=== PATIENT | male | born 1985 | race Caucasian/White ===

== ENCOUNTER 2019-09-05 11:55 | Inpatient (IN) | payer BC ==
[2019-09-05 13:10] LABS: Bilirubin Negative (Negative); Blood, Urine 1+ (Negative); Clarity Clear (Clear); Glucose, Urine (Dipstick) Greater than 1000 mg/dL (Negative); Leukocyte Negative Leu/uL (Negative); Nitrite Negative (Negative); Protein, Urine (Dipstick) 100 mg/dL (Neg-Trace); RBC/HPF 0-3 HPF (0-3); Squamous Epithelial 0-3 HPF (0-3); Urobilinogen 3 mg/dL (Less than 2); WBC/HPF 0-3 HPF (0-3)
[2019-09-05 13:20] LABS: Bacteria/HPF None Seen HPF (None Seen)
--- NOTE | 2019-09-05 13:39 | RAD ---
XR Chest 1 View Portable HISTORY: Diabetic ketoacidosis COMPARISON: None FINDINGS: The heart size is normal. The lungs are well expanded without focal areas of consolidation, pneumothorax or pleural effusions. IMPRESSION: No radiographic evidence of acute cardiopulmonary process.
[2019-09-05 14:34] LABS: Base Excess-Venous -12.9 mmol/L (-2.0 to 3.0); Bicarbonate (HCO3v) 13.5 mmol/L (22.0-28.0); CO2 Tension (PvCO2) 32.4 mmHg (40.0-50.0); Calcium, Ionized 1.07 mmol/L (See Comments:); Chloride 110 mmol/L (98-107); Hemoglobin - Calc 16.2 g/dL (14.0-18.0); Potassium 3.9 mmol/L (3.5-5.1); Sodium 135 mmol/L (138-145); T. Carbon Dioxide 14.5 mmol/L (22.0-28.0); vO2 Saturation-calc 99.6 % (60.0-85.0)
[2019-09-05 14:46] LABS: #Basophils 0.1 thou/uL (0.0-0.2); #Eosinphils 0.1 thou/uL (0.0-0.7); #Lymphocytes 2.6 thou/uL (1.20-3.40); #Monocytes 0.6 thou/uL (0.11-0.59); #Neutrophils 8.5 thou/uL (1.40-6.50); %Basophils 0.5 % (0.0-1.0); %Eosinophils 0.4 % (0.0-10.0); %Lymphocytes 21.9 % (21.0-51.0); %Monocytes 5.3 % (0.0-10.0); %Neutrophils 71.9 % (42.0-75.0); Hemoglobin 13.8 g/dL (14.0-18.0); Mean Corpuscular HGB CONC 34.3 g/dL (32.0-36.0); Mean Corpuscular Hemoglobin 31.6 pg (27.0-31.0); Platelet Count 231 thou/uL (130-400); RBC Distribution Width 12.3 % (11.5-14.5); Red Blood Cell (RBC) Count 4.38 mill/uL (4.70-6.10); White Blood Cell (WBC) Count 11.8 thou/uL (4.8-10.8)
[2019-09-05 15:03] LABS: ALT (SGPT) 19 U/L (8-55); AST (SGOT) 16 U/L (5-34); Albumin 3.6 g/dL (3.5-5.0); Alkaline Phosphatase 74 U/L (40-110); Anion Gap 24 mmol/L (10-20); BUN (Urea Nitrogen) 17 mg/dL (8.9-20.6); Bilirubin, Total 0.6 mg/dL (0.2-1.2); Calc. Creatinine Clearance 0 mL/min (70-130); Calcium 8.4 mg/dL (7.8-10.44); Chloride 109 mmol/L (98-107); Estimated GFR-MDRD 55; Globulin 2.8 g/dL (2.4-3.5); Glucose 190 mg/dL (70-105); Potassium 4.5 mmol/L (3.5-5.1); Protein, Total 6.4 g/dL (6.0-8.3); Sodium 136 mmol/L (136-145)
[2019-09-05 15:08] LABS: Carbon Dioxide 8 mmol/L (22-29)
[2019-09-05] MEDS ORDERED: Insulin Regular 100 units/100 ml in NS IVPB SCH (15:45)
[2019-09-05] MEDS ORDERED: Famotidine/PF 20 mg/2ml Vial ONE (16:30)
[2019-09-05] MEDS ORDERED: Ondansetron PF 4 MG/2 ML Vial ONE (17:16)
[2019-09-05 17:29] LABS: Magnesium 1.4 mg/dL (1.6-2.6); Phosphorus 2.1 mg/dL (2.3-4.7)
[2019-09-05] MEDS ORDERED: D5 1/2 NS w/20 mEq KCL 1,000 ML ONE (18:10)
[2019-09-05] MEDS ORDERED: Dextrose 5 %-0.45 % NaCl 1,000 ML IV PRN ×2 (18:13→19:29)
[2019-09-05] MEDS ORDERED: Dextrose 5% in Water 1,000 ML IV PRN ×2 (18:13→23:33)
[2019-09-05] MEDS ORDERED: Acetaminophen 325 MG TAB PO PRN ×2 (18:13→19:31)
[2019-09-05] MEDS ORDERED: Ondansetron ODT 4 MG TAB SL PRN (18:13)
[2019-09-05] MEDS ORDERED: Ondansetron PF 4 MG/2 ML Vial IVP PRN ×2 (18:13→19:31)
[2019-09-05] MEDS ORDERED: NS 0.9% w/ 20 MEQ KCL 1,000 ML/1,000 ML BAG IV PRN ×2 (18:13)
[2019-09-05] MEDS ORDERED: Sodium Chloride 0.9% 1,000 ML IV PRN ×8 (18:13→19:29)
[2019-09-05] MEDS ORDERED: D5 1/2 NS w/20 mEq KCL 1,000 ML IV PRN ×2 (18:13→19:29)
[2019-09-05] MEDS ORDERED: Potassium Phosphate 15 MMOL in Sodium Chloride 0.9% 250 ML 250 ML IV PRN ×2 (18:14→20:22)
[2019-09-05] MEDS ORDERED: Potassium Phosphate 9 MMOL in Sodium Chloride 0.9% 100 ML IVPB PRN ×2 (18:14→20:22)
[2019-09-05] MEDS ORDERED: PHOS-NAK 1 PKT PACK PO PRN ×4 (18:14→20:22)
[2019-09-05] MEDS ORDERED: Dextrose 50% Abboject 50 ML SYRINGE SLOW IVP PRN ×2 (18:14→23:33)
[2019-09-05] MEDS ORDERED: Potassium Chloride 40 MEQ in Sodium Chloride 0.9% 250 ML 250 ML IVPB PRN ×2 (18:14→20:22)
[2019-09-05] MEDS ORDERED: Magnesium 2 GM/50 ML 2 GM in Premix Bag 1 BAG IVPB PRN ×2 (18:14→20:22)
[2019-09-05] MEDS ORDERED: Magnesium Oxide 400 MG TAB PO PRN ×4 (18:14→20:22)
[2019-09-05] MEDS ORDERED: Potassium Phosphate 12 MMOL in Sodium Chloride 0.9% 250 ML 250 ML IV PRN ×2 (18:14→20:22)
[2019-09-05] MEDS ORDERED: Potassium Chloride 20 MEQ TAB PO PRN ×2 (18:14→20:22)
[2019-09-05] MEDS ORDERED: CCU ELECTROLYTE REPLACEMENT PROTOCOL FS PRN ×2 (18:14→20:22)
[2019-09-05] MEDS ORDERED: Potassium Chloride 40 MEQ in Premix Bag 1 BAG IVPB PRN ×2 (18:14→20:22)
[2019-09-05] MEDS ORDERED: ADD ELECTROLYTE REPLACEMENT SET TO PROFILE FS SCH (18:15)
[2019-09-05] MEDS ORDERED: HUMULIN R 100 UNITS in Sodium Chloride 0.9% 100 ML IVPB SCH ×2 (18:15→19:30)
[2019-09-05 18:31] VITALS: BMI 20.3
[2019-09-05] MEDS: NS 0.9% w/ 20 MEQ KCL 1,000 ML IV SCH (18:43)
[2019-09-05 19:10] LABS: Anion Gap 19 mmol/L (10-20); BUN (Urea Nitrogen) 14 mg/dL (8.9-20.6); Calc. Creatinine Clearance 91 mL/min (70-130); Calcium 8.3 mg/dL (7.8-10.44); Carbon Dioxide 11 mmol/L (22-29); Chloride 110 mmol/L (98-107); Estimated GFR-MDRD 61; Glucose 172 mg/dL (70-105); Potassium 3.7 mmol/L (3.5-5.1); Sodium 136 mmol/L (136-145)
[2019-09-05] MEDS ORDERED: NS 0.9% w/ 20 MEQ KCL 1,000 ML IV PRN ×2 (19:29)
[2019-09-05] MEDS ORDERED: CCU Electrolyte Replacement 1 EACH IVPB ONE (19:29)
[2019-09-05] MEDS ORDERED: Ondansetron ODT 4 MG TAB PO PRN (19:31)
[2019-09-05] MEDS ORDERED: Senokot S 8.6-50 MG TAB PO PRN (19:31)
[2019-09-05] MEDS ORDERED: Calcium Carbonate 500 MG ChewTAB PO PRN (19:31)
--- NOTE | 2019-09-05 19:47 | HP ---
PRIMARY CARE PHYSICIAN: None. PRIMARY IMPREGNATING MACHINE OPERATOR: Dr. Curtis. CHIEF COMPLAINT: Nausea, vomiting. The patient was sent from [facility]. HISTORY OF PRESENT ILLNESS: The patient is a 34-year-old white male, with diabetes mellitus type 1, presented to the emergency room with above complaints. Over the last 3 days, the patient has intermittent nausea along with heartburn. He had mild epigastric discomfort without any vomiting. He felt generally weak and fatigued. No fever, chills, sore throat, chest pain, palpitations, or focal neurologic deficit reported. He denies any sick contacts. Due to nausea, he has lost his appetite. For this reason, he did not take his 35 units of Tresiba over the last 2 days. In the emergency room, his workup was consistent with diabetic ketoacidosis. He was started on insulin drip. PAST MEDICAL HISTORY: Diabetes mellitus type 1, Hypothyroidism PAST SURGICAL HISTORY: [place] tooth extraction. ALLERGIES: NO KNOWN DRUG ALLERGIES. CURRENT HOME MEDICATION: As discussed above. The patient also takes Humalog sliding scale and Levothyroxine. SOCIAL HISTORY: The patient currently lives at home. No smoking, alcohol, or drug use. FAMILY HISTORY: Negative for heart disease. REVIEW OF SYSTEMS: All other review of systems was reviewed and were found negative. PHYSICAL EXAMINATION: VITAL SIGNS: Temperature 97.8, respirations 20, pulse rate of 116, blood pressure of 126/83 with O2 saturation of 98% on room air. GENERAL: 34-year-old male, in no apparent distress, feels better with IV fluids. HEENT: Head, atraumatic and normocephalic. Sclerae anicteric. Dry mucous membranes. No oral lesion. NECK: Supple. No JVD. No carotid bruit. LUNGS: Clear to auscultation bilaterally. No wheezing, rales, or rhonchi. HEART: S1 and S2 present. Tachycardic. No rubs or gallops. ABDOMEN: Soft. Mild epigastric tenderness without any rebound or guarding. No costovertebral angle tenderness. EXTREMITIES: No edema or calf tenderness. NEUROLOGIC: Grossly nonfocal. Moves all 4 extremities. PSYCHIATRY: Alert, awake, and oriented x3. DIAGNOSTIC TESTS: 1. EKG by my review showed sinus tachycardia. 2. VBG showed pH 7.2 with bicarbonate 13.5. 3. Base met showed creatinine 1.47 with bicarbonate of 8, chloride of 106. 4. Ketone was 6.25. 5. Urinalysis was negative for WBC bacteria. 6. WBC was 11.8 with hemoglobin 13.8, hematocrit 40.3 with platelet count 231. 7. Chest x-ray by my review was negative for infiltrate. IMPRESSION: 1. Diabetic ketoacidosis. 2. Anion gap metabolic acidosis secondary to diabetic ketoacidosis. 3. Acute kidney injury. 4. Hypophosphatemia. Phosphorus was 2.1, hypomagnesemia, magnesium 1.4. 5. Dehydration. 6. Anemia, suspected chronic. 7. History of diabetes mellitus type 1. 8. Sinus tachycardia secondary to #1. 9. Hypothyroidism. PLAN: The patient will be monitored in the intermediate care unit. The patient has not taken Tresiba over the last 2 days due to significant nausea. He denies any history of diarrhea. There is no underlying infection noted at this time. We will continue insulin drip with IV fluids per DKA protocol. We will get labs every 4 hours. We will replace electrolytes. Recheck ketones in a.m. Continue insulin drip. Restart Levothyroxine once nausea improves. DISPOSITION: Probably in 1-2 days. Plan was discussed with the patient in detail. He stated understanding. Job ID: [id number] MTDD
[2019-09-05 22:45] LABS: Anion Gap 14 mmol/L (10-20); BUN (Urea Nitrogen) 12 mg/dL (8.9-20.6); Calc. Creatinine Clearance 94 mL/min (70-130); Calcium 8.3 mg/dL (7.8-10.44); Carbon Dioxide 15 mmol/L (22-29); Chloride 111 mmol/L (98-107); Estimated GFR-MDRD 63; Glucose 154 mg/dL (70-105); Potassium 3.7 mmol/L (3.5-5.1); Sodium 136 mmol/L (136-145)
[2019-09-05] MEDS ORDERED: Insulin Regular 300 UNITS/3 ML VIAL SC PRN ×2 (23:33)
[2019-09-05] MEDS ORDERED: 1/2 NS w/KCL 20 mEq 1,000 ML IV SCH (23:45)
[2019-09-05] MEDS ORDERED: Insulin Glargine 15 UNITS in Pre-Filled Syringe 1 EACH SC SCH (23:59)
[2019-09-06 04:20] LABS: Anion Gap 14 mmol/L (10-20); BUN (Urea Nitrogen) 9 mg/dL (8.9-20.6); Calc. Creatinine Clearance 95 mL/min (70-130); Calcium 8.5 mg/dL (7.8-10.44); Carbon Dioxide 17 mmol/L (22-29); Chloride 110 mmol/L (98-107); Estimated GFR-MDRD 63; Glucose 154 mg/dL (70-105); Magnesium 1.5 mg/dL (1.6-2.6); Potassium 4.3 mmol/L (3.5-5.1); Sodium 137 mmol/L (136-145)
[2019-09-06 04:25] LABS: Phosphorus 2.3 mg/dL (2.3-4.7)
[2019-09-06] MEDS ORDERED: Vecuronium 10 MG VIAL ONE (08:21)
[2019-09-06] MEDS ORDERED: Insulin Glargine 15 UNITS in Pre-Filled Syringe 1 EACH SC SCH (09:00)
[2019-09-06] MEDS ORDERED: Insulin Regular 300 UNITS/3 ML VIAL SC PRN (10:23)
[2019-09-06 11:29] VITALS: TEMP 99.2
[2019-09-06] MEDS ORDERED: Magnesium 2 GM/50 ML 2 GM in Premix Bag 1 BAG IVPB SCH (12:15)
--- NOTE | 2019-09-06 14:57 | DIS ---
DATE OF ADMISSION: 09/05/2019 DATE OF DISCHARGE: 09/06/2019 DISCHARGE DISPOSITION: Home. FOLLOWUP: Follow up with primary sapphire stylus grinder, Dr. Curtis, as scheduled. ALLERGIES: NO KNOWN DRUG ALLERGIES. DISCHARGE MEDICATIONS: Same as admission medications. The patient was seen and examined on the day of discharge. Denies any new complaints. No chest pain, shortness of breath, palpitations, nausea, or vomiting reported. The patient is tolerating regular diet. BRIEF HOSPITAL COURSE: The patient is a 34-year-old male with diabetes mellitus type 1, presented to the hospital with nausea and vomiting. He was sent from [facility]. His workup was consistent with diabetic ketoacidosis with anion gap of 24, ketone of 6.25, and VBG showing pH of 7.2 with a bicarbonate of 13.5 and bicarbonate of 8 on the basic metabolic profile. He was admitted to the intermediate care unit and was started on insulin drip with IV fluids per protocol. His electrolytes were gradually replaced. Last night, the insulin drip was discontinued and was transitioned to subcu to Lantus. His anion gap is 14 today with a bicarbonate of 17. He appears stable for discharge. FINAL DIAGNOSES: 1. Diabetic ketoacidosis. 2. Anion gap metabolic acidosis secondary to diabetic ketoacidosis. 3. Acute kidney injury with a creatinine of 1.47 on admission. 4. Hypomagnesemia. 5. Hypophosphatemia. 6. Dehydration. 7. Hypothyroidism. 8. Sinus tachycardia secondary to #1. 9. Anemia, suspected chronic. PLAN: Plan of care was discussed with the patient in detail. He stated understanding. Job ID: [id number]
== END 2019-09-06 13:50 | disposition home or self-care (01) | DRG 638 ==
LOC: ERS 11:55 → IMCU/EMU 18:12
PROVIDERS: ADMIT Internal Medicine; ATTEND Internal Medicine
DX: E10.10 Type 1 diabetes mellitus with ketoacidosis without coma (principal); N17.9 Acute kidney failure, unspecified; E83.42 Hypomagnesemia; E83.39 Other disorders of phosphorus metabolism; E86.0 Dehydration; E03.9 Hypothyroidism, unspecified; R00.0 Tachycardia, unspecified; D64.9 Anemia, unspecified; Z79.4 Long term (current) use of insulin
CPT/HCPCS: 36415; 36416; 71045; 80048; 80053; 81003; 81015; 82010; 82330; 82803; 83735; 84100; 85025; 93005; 94760; J1815; J2405; J3475; J3480; J3490; S0028

== ENCOUNTER 2019-10-28 12:57 | Inpatient (IN) | payer BC ==
[2019-10-28 14:01] LABS: Bacteria/HPF None Seen HPF (None Seen); Bilirubin 1+ (Negative); Blood, Urine 1+ (Negative); Clarity Clear (Clear); Glucose, Urine (Dipstick) Greater than 1000 mg/dL (Negative); Leukocyte Negative Leu/uL (Negative); Mucous/LPF 1+ LPF (<2+); Nitrite Negative (Negative); Protein, Urine (Dipstick) 100 mg/dL (Neg-Trace); Squamous Epithelial 0-3 HPF (0-3); WBC/HPF 0-3 HPF (0-3)
[2019-10-28 14:01] LABS: #Basophils 0.1 thou/uL (0.0-0.2); #Eosinphils 0.1 thou/uL (0.0-0.7); #Lymphocytes 2.1 thou/uL (1.20-3.40); #Neutrophils 11.9 thou/uL (1.40-6.50); %Basophils 0.7 % (0.0-1.0); %Eosinophils 0.3 % (0.0-10.0); %Lymphocytes 13.8 % (21.0-51.0); %Monocytes 6.9 % (0.0-10.0); %Neutrophils 78.4 % (42.0-75.0); Hemoglobin 13.4 g/dL (14.0-18.0); Mean Corpuscular HGB CONC 34.1 g/dL (32.0-36.0); Mean Corpuscular Hemoglobin 32.4 pg (27.0-31.0); Mean Platelet Volume 8.3 fL (7.4-10.4); Platelet Count 259 thou/uL (130-400); RBC Distribution Width 12.1 % (11.5-14.5); Red Blood Cell (RBC) Count 4.12 mill/uL (4.70-6.10); White Blood Cell (WBC) Count 15.2 thou/uL (4.8-10.8)
[2019-10-28 14:04] LABS: Base Excess-Venous -7.2 mmol/L (-2.0 to 3.0); Bicarbonate (HCO3v) 17.9 mmol/L (22.0-28.0); Calcium, Ionized 1.23 mmol/L (See Comments:); Chloride 105 mmol/L (98-107); Hemoglobin - Calc 13.9 g/dL (14.0-18.0); Potassium 4.2 mmol/L (3.5-5.1); Sodium 133 mmol/L (138-145); T. Carbon Dioxide 18.9 mmol/L (22.0-28.0)
[2019-10-28 14:23] LABS: ALT (SGPT) 21 U/L (8-55); AST (SGOT) 13 U/L (5-34); Albumin 3.8 g/dL (3.5-5.0); Alkaline Phosphatase 110 U/L (40-110); Anion Gap 20 mmol/L (10-20); BUN (Urea Nitrogen) 19 mg/dL (8.9-20.6); Bilirubin, Total 0.4 mg/dL (0.2-1.2); Calc. Creatinine Clearance 0 mL/min (70-130); Calcium 9.8 mg/dL (7.8-10.44); Carbon Dioxide 17 mmol/L (22-29); Chloride 103 mmol/L (98-107); Estimated GFR-MDRD 54; Globulin 2.7 g/dL (2.4-3.5); Glucose 180 mg/dL (70-105); Potassium 4.4 mmol/L (3.5-5.1); Protein, Total 6.5 g/dL (6.0-8.3); Sodium 136 mmol/L (136-145)
[2019-10-28] MEDS ORDERED: Azithromycin 500 MG VIAL ONE (15:02)
[2019-10-28] MEDS ORDERED: cefTRIAXone\\ROCEPHIN 2 GM VIAL ONE (15:03)
--- NOTE | 2019-10-28 15:05 | RAD ---
PORTABLE CHEST: HISTORY: Cough. COMPARISON: 09/05/2019 FINDINGS: Heart size is within normal limits. There is suggestion of some parenchymal change in the right mid l bk field, suggesting some early infiltrative change. IMPRESSION: Findings suggesting some early infiltrative change in the right mid lung field. POS: RAY
[2019-10-28] MEDS ORDERED: Mag-Al 1200 mg/1200 mg/30 ML UDCUP ONE (15:58)
[2019-10-28] MEDS ORDERED: Lidocaine Viscous Sol 2% 15 ml UD Cup ONE (15:58)
--- NOTE | 2019-10-28 16:37 | PDOC.FPRHP ---
- History of Present Illness Chief Complaint: concerned he may be in DKA History of Present Illness: 34yo CM with h/o DMI and hypothyroidism presents for concerned that he may be in DKA. Pt states symptoms started Tuesday 10/24 as cough, hoarseness, congestion, sore throat. This then progressed to chest congestion, productive cough of thick green mucous, and fever up to 100. He presented to [facility] clinic on Tuesday for eval, flu swab and strep were negative per pt and he was given tessalon pearls and tylenol and told likely viral in nature. He states he has had decreased PO intake since Tuesday night, trying to keep liquids down but overall not feeling well. He checked a urine ketone strip this AM and it was positive and thus he presented for eval to the ED. He currently denies any known sick contacts, CP, SOB, abd pain, n/v, fever/chills. He does endorse mild heartburn. ED Course: BKA ruled out. R middle lobe PNA on CXR, met sepsis criteria with tachycardiac and WBC. Given NS 3L, Rocephin, Azithro, and GI cocktail. Admitted for PNA. - Allergies/Adverse Reactions Allergies Allergy/AdvReac Type Severity Reaction Status Date / Time No Known Allergies Allergy Verified 09/05/19 18:22 - Home Medications Medication Instructions Recorded Confirmed Type HumaLOG [HumaLOG Vial] 0 unit SC TID-WM PRN 09/05/19 10/28/19 History Insulin Degludec [Tresiba] 35 unit SQ DAILY 09/05/19 10/28/19 History Levothyroxine Sodium 224 mcg PO QAM 10/28/19 10/28/19 History - History PMHx: DMI, hypothyroidism PSHx: [place] teeth removed FHx: Mother and father- HTN. Grandparents cancer Social: Alcohol once per month. Denies tobacco, drug use. - Review of Systems General: reports: fever/chills, weight/appetite/sleep changes (decreased appetite and PO intake), fatigue. denies: night sweats ENT: reports: nasal congestion, rhinorrhea Respiratory: reports: cough, congestion, shortness of breath Cardiovascular: denies: chest pain, edema Gastrointestinal: denies: nausea, vomiting, diarrhea, constipation, abdominal pain Genitourinary: denies: incontinence, dysuria, discharge Skin: denies: rashes Musculoskeletal: denies: pain Neurological: denies: numbness, syncope - Vital signs BP: 125/87 HR: 106 RR: 20 Tmax: 98 Pox: 97% on RA Wt: 83kg - Physical Exam Constitutional: NAD, awake, alert and oriented, well developed, other (hoarse voice) HEENT: PERRLA, EOMI, conjunctiva clear, grossly normal vision, grossly normal hearing, normal nasal mucosa, MMM, other (injected posterior oropharynx, mild tonsilar enlargement, no exudates) Neck: supple, FROM, other (mild anterior, tender cervical lymphadenopathy) Chest: no-tender to palpation Heart: RRR, normal S1/S2, no murmurs/rubs/gallops, pulses present, no edema Lungs: CTAB, no respiratory distress, good air movement, no rales/rhonchi, no wheezing Abdomen: soft, non-tender, bowel sounds present, no masses/distention Musculoskeletal: normal structure, normal tone Neurological: no focal deficit Skin: no rash/lesions Heme/Lymphatic: no unusual bruising or bleeding Psychiatric: normal mood and affect, good judgment and insight, intact recent and remote memory FMR H&P: Results - Labs Result Diagrams: 10/28/19 13:50 10/28/19 20:25 Lab results: WBC 15.2 thou/uL (4.8-10.8) H 10/28/19 13:50 Hgb 13.4 g/dL (14.0-18.0) L 10/28/19 13:50 Hct 39.2 % (42.0-52.0) L 10/28/19 13:50 MCV 95.0 fL (78.0-98.0) 10/28/19 13:50 Plt Count 259 thou/uL (130-400) 10/28/19 13:50 Neutrophils % 78.4 % (42.0-75.0) H 10/28/19 13:50 VBG pCO2 34.0 mmHg (40.0-50.0) L 10/28/19 14:04 VBG pO2 74.9 mmHg (35.0-45.0) H 10/28/19 14:04 Sodium 136 mmol/L (136-145) 10/28/19 13:50 Potassium 4.4 mmol/L (3.5-5.1) 10/28/19 13:50 Chloride 103 mmol/L (98-107) 10/28/19 13:50 Carbon Dioxide 17 mmol/L (22-29) L 10/28/19 13:50 BUN 19 mg/dL (8.9-20.6) 10/28/19 13:50 Creatinine 1.48 mg/dL (0.7-1.3) H 10/28/19 13:50 Glucose 180 mg/dL (70-105) H 10/28/19 13:50 Lactic Acid 0.8 mmol/L (0.5-2.2) 10/28/19 15:31 Calcium 9.8 mg/dL (7.8-10.44) 10/28/19 13:50 Total Bilirubin 0.4 mg/dL (0.2-1.2) 10/28/19 13:50 AST 13 U/L (5-34) 10/28/19 13:50 ALT 21 U/L (8-55) 10/28/19 13:50 Alkaline Phosphatase 110 U/L (40-110) 10/28/19 13:50 Serum Total Protein 6.5 g/dL (6.0-8.3) 10/28/19 13:50 Albumin 3.8 g/dL (3.5-5.0) 10/28/19 13:50 Urine Ketones Greater than 150 mg/dL (Negative) A 10/28/19 13:30 Urine Blood 1+ (Negative) A 10/28/19 13:30 Urine Nitrite Negative (Negative) 10/28/19 13:30 Ur Leukocyte Esterase Negative Ashley/uL (Negative) 10/28/19 13:30 Urine RBC 4-6 HPF (0-3) A 10/28/19 13:30 Urine WBC 0-3 HPF (0-3) 10/28/19 13:30 Ur Squamous Epith Cells 0-3 HPF (0-3) 10/28/19 13:30 Urine Bacteria None Seen HPF (None Seen) 10/28/19 13:30 - Radiology Interpretation Chest x-ray Status: image reviewed by me (Mild developing R-middle lobe infiltrate), report reviewed by me FMR H&P: A/P - Problem List (1) Pneumonia Current Visit: Yes Status: Acute Code(s): J18.9 - PNEUMONIA, UNSPECIFIED ORGANISM Qualifiers: Laterality: right Lung location: middle lobe of lung (2) Ketosis due to diabetes Current Visit: Yes Status: Acute Code(s): E13.10 - OTH DIABETES MELLITUS WITH KETOACIDOSIS WITHOUT COMA (3) Diabetes type 1, controlled Current Visit: Yes Status: Chronic Code(s): E10.9 - TYPE 1 DIABETES MELLITUS WITHOUT COMPLICATIONS Qualifiers: Diabetes mellitus complication status: without complication Qualified Code( s): E10.9 - Type 1 diabetes mellitus without complications (4) Hypothyroidism Current Visit: Yes Status: Chronic Code(s): E03.9 - HYPOTHYROIDISM, UNSPECIFIED - Plan 34yo CM with h/o DMI and hypothyroidism presents with R-middle lobe PNA and ketosis. #Sepsis secondary to R-Middle lobe pneumonia - Sxs for past 5 days, congestion, cough, fever - Met sepsis criteria with WBC of 15.2 and tachycardia to 106 at presentation - CXR - developing R-middle lobe PNA - Given 3L NS in ED, artis, will cont abx and MIVF of NS @120cc/ hr - Procal and CRP pending - Will obtain flu swab, consider RVP if negative - Monitor resp status #Ketosis secondary to DMI - Known DMI - Not in DKA with pH 7.328, AG 16, but ketosis of BHB 5.31 - Cont IVF of NS @ 120cc/hr, s/p 3L NS - recheck AM BMP and BHB - Cont home Tresiba - will use lower dose of 20u QAM until normal PO intake - Mild SS and ACHS Accuchecks with hyperglycemic protocol - Diabetic diet #SILVINA vs CKD - Cr 1.48, records reviewed and previous admission Cr 1.2 - cont IVF hydration and monitor #Hypothyroidism - cont home levothyroxine PCP: None - sees [facility] Spirits Clerk at [facility] Code: Full Diet: CC IVF: NS @ 120cc/hr VTE: SCDs Disposition/LOS: Admit to medical inpt for Sepsis 2/2 PNA and ketosis 2/2 DMI. Monitor BG, cont home insulin and SS and encourage PO intake. Cont IV abx and monitor. Anticipate hospitalization > 48 hours. FMR H&P: Upper Level - Pertinent history Mr Beltran is a 34yo male with pmh of Type I diabetes and hypothyroidism that presented to the ED for concern for DKA. He started to have flu like symptoms- cough, sore throat, body aches, fever, decreased appetite on Tuesday. Tuesday symptoms were still present so [facility], had a neg flu swab , was prescribed antitussive and instructed to take Tylenol. He has been taking reduced dosing of his Tresiba insulin (10U instead of 35U) as he has not eaten since Tuesday. Concerned today for DKA after he used ketone urine test strip and it was positive and he noticed his breath seemed acidic. Endorses GERD symptoms. Xray in the ED with right middle lobe pneumonia. He was given 3L NS, Ceftriaxone and Azithromycin in the ED. - Plan Date/Time: 10/28/19 1637 PE: General: Appears Ill, MMM. Hoarse voice. Pharynx erythematous Pulm: CTA bilaterally, no resp distress CV: Tachycardic, no murmurs Abdomen: Nontender, BS + A/P: Sepsis 2/2 CAP - Xray with middle lobe pneumonia. Leukocytosis and tachycardia. Normal lung exam. No resp distress. Will continue Ceftriaxone and Azithromycin. Ordered procal and CRP. Will continue mIVF as pt is not taking much PO. Start Pepcid for GERD symptoms. No relief with GI cocktail in ED. SILVINA - Continue to monitor with AM BMP Type I DM - Continue home long acting insulin but at lower dose. Tresiba at 20U. ACHS accuchecks and CC diet. Hypoglycemic protocol. BMP in the AM sooner if indicated by pts symptoms overnight. Beta hydroxybuterate elevated at 5.31. Hypothyroidism - Continue home meds I, Mara Tam, have evaluated this patient and agree with findings/plan as outlined by buyer internship resident. Pertinent changes/additions are listed here. Addendum - Attending - Attending Attestation Date/Time: 10/28/19 [id number] I personally evaluated the patient and discussed the management with Dr. Salo Wing I agree with the History, Examination, Assessment and Plan documented above with any addition or exceptions noted below - 34yo male with pmh of Type I diabetes and hypothyroidism that presented to the ED for concern for DKA. He started to have flu like symptoms- cough, sore throat, body aches, fever, decreased appetite on Tuesday. Tuesday symptoms were still present so [facility], had a neg flu swab, was prescribed antitussive and instructed to take Tylenol. He has been taking reduced dosing of his Tresiba insulin (10U instead of 35U) as he has not eaten since Tuesday. Concerned today for DKA after he used ketone urine test strip and it was positive and he noticed his breath seemed acidic. Endorses GERD symptoms. Denies any ill contacts. Denies any N/V/D or abd pain. PMH/PSH/All/Meds reviewed and agree with resident's documentation. T98.2 P96 BP 134/80 RR18 Exam repeated by me and agree with residnet's findings. Labs: WBC=15.2, H/H=13.4/39.2, Jmj=781, Na= 136, K=4.4, Ku=035, CO2=17, BUN/Cr= 19/1.48, Sulo=443, lactic acid=0.8, Procal= 1.08, flu (-), VBG= 7.328/34/75/18, beta hyhydroxy=5.31, CXR= early infiltrate right mid lung A/P: 1) Sepsis secondary to penumonia- Admit to medical. Continue Rocephin and Azithromycin. Blood cultures pending. No O2 requirement. Continue to monitor. 2) SILVINA= continue IV fluids and recheck Basmet in AM. #0 Hypothyroidism- continue levothyroxine 4) Type 1 DM- continue decreased dose of tresiba until his po intake improves.
[2019-10-28] MEDS ORDERED: Ondansetron ODT 4 MG TAB PO PRN (18:48)
[2019-10-28] MEDS ORDERED: Dextrose 5% in Water 1,000 ML IV PRN (18:48)
[2019-10-28] MEDS ORDERED: Dextrose 50% Abboject 50 ML SYRINGE SLOW IVP PRN (18:48)
[2019-10-28] MEDS ORDERED: HumaLOG 300 UNITS/3 ML VIAL SC PRN ×2 (18:48)
[2019-10-28] MEDS ORDERED: Calcium Carbonate 500 MG ChewTAB PO PRN (18:48)
[2019-10-28] MEDS ORDERED: Ondansetron PF 4 MG/2 ML Vial IVP PRN (18:48)
[2019-10-28] MEDS ORDERED: Acetaminophen 325 MG TAB PO PRN (18:48)
[2019-10-28 19:01] VITALS: BMI 25.8
[2019-10-28] MEDS: Sodium Chloride 0.9% 1,000 ML IV SCH (19:44)
[2019-10-28] MEDS: Famotidine 20 MG TAB PO SCH (19:44)
[2019-10-28 20:54] LABS: Anion Gap 15 mmol/L (10-20); BUN (Urea Nitrogen) 14 mg/dL (8.9-20.6); Calc. Creatinine Clearance 96 mL/min (70-130); Calcium 8.6 mg/dL (7.8-10.44); Carbon Dioxide 17 mmol/L (22-29); Chloride 108 mmol/L (98-107); Estimated GFR-MDRD 62; Glucose 166 mg/dL (70-105); Potassium 4.1 mmol/L (3.5-5.1); Sodium 136 mmol/L (136-145)
--- NOTE | 2019-10-28 21:44 | PDOC.BPN ---
- Brief Progress Note gap on repeat gap 11 glucose 180 will cont fluids and recheck in AM
[2019-10-29] MEDS: Diabetic Tussin DM 5 ML UDCUP PO PRN ×3 (00:01→11:58)
[2019-10-29] MEDS: Sodium Chloride 0.9% 1,000 ML IV SCH ×4 (03:37→23:04)
[2019-10-29 05:14] LABS: #Basophils 0.1 thou/uL (0.0-0.2); #Eosinphils 0.1 thou/uL (0.0-0.7); #Lymphocytes 2.3 thou/uL (1.20-3.40); #Monocytes 0.6 thou/uL (0.11-0.59); #Neutrophils 6.8 thou/uL (1.40-6.50); %Basophils 0.9 % (0.0-1.0); %Monocytes 6.1 % (0.0-10.0); Hemoglobin 12.1 g/dL (14.0-18.0); Mean Corpuscular HGB CONC 33.2 g/dL (32.0-36.0); Mean Corpuscular Hemoglobin 31.6 pg (27.0-31.0); Mean Corpuscular Volume 95.2 fL (78.0-98.0); Mean Platelet Volume 7.9 fL (7.4-10.4); Platelet Count 243 thou/uL (130-400); Red Blood Cell (RBC) Count 3.82 mill/uL (4.70-6.10); White Blood Cell (WBC) Count 9.9 thou/uL (4.8-10.8)
[2019-10-29 05:33] LABS: Anion Gap 19 mmol/L (10-20); BUN (Urea Nitrogen) 10 mg/dL (8.9-20.6); Calc. Creatinine Clearance 115 mL/min (70-130); Calcium 8.1 mg/dL (7.8-10.44); Carbon Dioxide 13 mmol/L (22-29); Chloride 106 mmol/L (98-107); Estimated GFR-MDRD 76; Glucose 238 mg/dL (70-105); Potassium 3.7 mmol/L (3.5-5.1); Sodium 134 mmol/L (136-145)
[2019-10-29] MEDS: Levothyroxine Sodium 112 MCG TAB PO SCH (05:44)
[2019-10-29] MEDS ORDERED: HumaLOG 300 UNITS/3 ML VIAL SC PRN ×2 (06:23→10:27)
[2019-10-29] MEDS ORDERED: Insulin Regular 300 UNITS/3 ML VIAL SC PRN (06:26)
--- NOTE | 2019-10-29 06:30 | PDOC.FM ---
- Subjective Subjective: He feels well this morning. He had difficulty sleeping due to secondary IV placement, but had that removed this morning. He did not eat much last night, but he plans to order a big breakfast this morning. He is experiencing no SOB - Objective MAR Reviewed: Yes Vital Signs & Weight: Vital Signs (12 hours) Temp Pulse Resp BP Pulse Ox 10/29/19 04:00 98.5 F 97 18 126/76 97 10/29/19 00:00 98.4 F 95 16 124/67 97 10/28/19 19:44 96 10/28/19 18:48 98.2 F 96 18 134/80 96 10/28/19 18:35 98.2 F 103 H 16 114/76 95 Weight Weight 86.455 kg I&O: 10/27/19 10/28/19 10/29/19 06:59 06:59 06:59 Intake Total 2100 Balance 2100 Result Diagrams: 10/29/19 05:05 10/29/19 12:15 Phys Exam - Physical Examination Constitutional: NAD HEENT: PERRLA, moist MMs Neck: no nodes, supple, full ROM Respiratory: no wheezing, no rales, no rhonchi, clear to auscultation bilateral Cardiovascular: RRR, no significant murmur Gastrointestinal: soft, non-tender, positive bowel sounds Musculoskeletal: no edema Neurological: moves all 4 limbs Lymphatic: no nodes Psychiatric: normal affect Skin: no rash Dx/Plan (1) Ketosis due to diabetes Code(s): E13.10 - OTH DIABETES MELLITUS WITH KETOACIDOSIS WITHOUT COMA Status : Acute (2) Pneumonia Code(s): J18.9 - PNEUMONIA, UNSPECIFIED ORGANISM Status: Acute Qualifiers: Laterality: right Lung location: middle lobe of lung (3) Diabetes type 1, controlled Code(s): E10.9 - TYPE 1 DIABETES MELLITUS WITHOUT COMPLICATIONS Status: Chronic Qualifiers: Diabetes mellitus complication status: without complication Qualified Code( s): E10.9 - Type 1 diabetes mellitus without complications (4) Hypothyroidism Code(s): E03.9 - HYPOTHYROIDISM, UNSPECIFIED Status: Chronic - Plan Plan: 34yo CM with h/o DMI and hypothyroidism presents with R-middle lobe PNA and ketosis. 1.Sepsis secondary to R-Middle lobe pneumonia * Sxs for past 5 days, congestion, cough, fever * Met sepsis criteria with WBC of 15.2 and tachycardia to 106 at presentation * CXR - developing R-middle lobe PNA * Given 3L NS in ED, indigon and leonardro, will cont abx and MIVF of NS @120cc/ hr * Procal and CRP pending * Will obtain flu swab, consider RVP if negative * Monitor resp status 2. Ketosis secondary to DMI * Known DMI * ABG: pH 7.328, AG 16, but ketosis of BHB 5.31 * Cont IVF of NS @ 120cc/hr, s/p 3L NS * recheck BMP around lunch * AG 15 * BHB: 6.75 * Home Tresiba dose 35 U * Started on 20 U yesterday due to poor PO intake * Elevated BG increased to 30U * Mild SS and ACHS Accuchecks with hyperglycemic protocol * Diabetic diet 3. SILVINA vs CKD- resolved * Cr 1.10, records reviewed and previous admission Cr 1.2 4. Hypothyroidism * cont home levothyroxine PCP: None - sees Flow Specialist at [facility] Code: Full Diet: CC IVF: NS @ 120cc/hr VTE: SCDs Disposition/LOS: Admit to medical inpt for Sepsis 2/2 PNA and ketosis 2/2 DMI. Consider transition to PO abx today. Recheck AG and monitor for gap closure. P Anticipate hospitalization > 48 hours. Addendum - Attending - Attending Attestation Date/Time: 10/29/19 8518 I personally evaluated the patient and discussed the management with Dr. Wing I agree with the History, Examination, Assessment and Plan documented above with any addition or exceptions noted below. Anion gap is slowly increasing and bicarb decreasing. Increase fluid rate. increase basil insulin to home dose and add aggressive sliding scale insulin. Repeat BMP at 1200 and if anion gap continues to open will transfer to [facility] for DKA protocol. LOS pending repeat BMP at 1200.
[2019-10-29] MEDS: Famotidine 20 MG TAB PO SCH ×2 (08:34→20:08)
[2019-10-29] MEDS ORDERED: Insulin Glargine 20 UNITS in Pre-Filled Syringe 1 EACH SC SCH (09:00)
[2019-10-29] MEDS ORDERED: Insulin Glargine 30 UNITS in Pre-Filled Syringe 1 EACH SC SCH (09:00)
[2019-10-29] MEDS ORDERED: Non-Formulary Item 1 EACH (Insulin Degludec [Tresiba] 20 UNIT) SQ SCH (09:00)
[2019-10-29 12:44] LABS: Anion Gap 12 mmol/L (10-20); BUN (Urea Nitrogen) 8 mg/dL (8.9-20.6); Calc. Creatinine Clearance 110 mL/min (70-130); Calcium 8.5 mg/dL (7.8-10.44); Carbon Dioxide 21 mmol/L (22-29); Chloride 108 mmol/L (98-107); Estimated GFR-MDRD 72; Glucose 169 mg/dL (70-105); Potassium 3.8 mmol/L (3.5-5.1); Sodium 137 mmol/L (136-145)
[2019-10-29] MEDS ORDERED: Benzonatate 100 MG CAP PO PRN (14:31)
[2019-10-29] MEDS ORDERED: Azithromycin 500 MG in Sodium Chloride 0.9% 250 ML 250 ML IVPB SCH (15:00)
[2019-10-29] MEDS ORDERED: cefTRIAXone\\ROCEPHIN 1 GM in Sodium Chloride 0.9% 100 ML IVPB SCH (16:00)
[2019-10-30] MEDS: Diabetic Tussin DM 5 ML UDCUP PO PRN ×2 (00:24→09:01)
[2019-10-30] MEDS: Sodium Chloride 0.9% 1,000 ML IV SCH (02:00)
[2019-10-30 05:48] LABS: #Basophils 0.1 thou/uL (0.0-0.2); #Eosinphils 0.2 thou/uL (0.0-0.7); #Lymphocytes 3.3 thou/uL (1.20-3.40); #Monocytes 0.4 thou/uL (0.11-0.59); #Neutrophils 5.1 thou/uL (1.40-6.50); %Basophils 0.8 % (0.0-1.0); %Eosinophils 2.4 % (0.0-10.0); %Lymphocytes 36.3 % (21.0-51.0); %Monocytes 3.9 % (0.0-10.0); %Neutrophils 56.6 % (42.0-75.0); Hemoglobin 13.1 g/dL (14.0-18.0); Mean Corpuscular HGB CONC 33.9 g/dL (32.0-36.0); Mean Corpuscular Hemoglobin 32.4 pg (27.0-31.0); Mean Corpuscular Volume 95.6 fL (78.0-98.0); Mean Platelet Volume 7.9 fL (7.4-10.4); Platelet Count 282 thou/uL (130-400); RBC Distribution Width 12.1 % (11.5-14.5); Red Blood Cell (RBC) Count 4.04 mill/uL (4.70-6.10)
[2019-10-30 05:50] LABS: Anion Gap 11 mmol/L (10-20); BUN (Urea Nitrogen) 8 mg/dL (8.9-20.6); Calc. Creatinine Clearance 134 mL/min (70-130); Carbon Dioxide 25 mmol/L (22-29); Chloride 111 mmol/L (98-107); Estimated GFR-MDRD Greater than 90; Glucose 80 mg/dL (70-105); Potassium 3.6 mmol/L (3.5-5.1); Sodium 143 mmol/L (136-145)
[2019-10-30] MEDS: Levothyroxine Sodium 112 MCG TAB PO SCH (06:09)
--- NOTE | 2019-10-30 06:38 | PDOC.FM ---
- Subjective Subjective: He had a hypoglycemic event last night. Blood glucose was 78, but he was diaphoretic and shaky. He was given apple juice and felt much better. He otherwise feels well aside from a dry cough. He said he had some indigestion and it may be related to that, because when he received pepcid, he felt much better. - Objective MAR Reviewed: Yes Vital Signs & Weight: Vital Signs (12 hours) Temp Pulse Resp BP Pulse Ox 10/29/19 20:00 98.4 F 91 16 136/83 97 Weight Weight 86.455 kg I&O: 10/28/19 10/29/19 10/30/19 06:59 06:59 06:59 Intake Total 2100 Balance 2100 Result Diagrams: 10/30/19 05:22 10/30/19 05:22 Phys Exam - Physical Examination Constitutional: NAD HEENT: PERRLA, moist MMs, oral pharynx no lesions Neck: no nodes, supple, full ROM Respiratory: no wheezing, clear to auscultation bilateral Cardiovascular: RRR, no significant murmur Gastrointestinal: soft, non-tender, positive bowel sounds Musculoskeletal: no edema, pulses present Neurological: moves all 4 limbs Lymphatic: no nodes Psychiatric: normal affect Skin: no rash Dx/Plan (1) Ketosis due to diabetes Code(s): E13.10 - OTH DIABETES MELLITUS WITH KETOACIDOSIS WITHOUT COMA Status : Acute (2) Pneumonia Code(s): J18.9 - PNEUMONIA, UNSPECIFIED ORGANISM Status: Acute Qualifiers: Laterality: right Lung location: middle lobe of lung (3) Diabetes type 1, controlled Code(s): E10.9 - TYPE 1 DIABETES MELLITUS WITHOUT COMPLICATIONS Status: Chronic Qualifiers: Diabetes mellitus complication status: without complication Qualified Code( s): E10.9 - Type 1 diabetes mellitus without complications (4) Hypothyroidism Code(s): E03.9 - HYPOTHYROIDISM, UNSPECIFIED Status: Chronic - Plan Plan: 34yo CM with h/o DMI and hypothyroidism presents with R-middle lobe PNA and ketosis. 1.Sepsis secondary to R-Middle lobe pneumonia * Sxs for past 5 days, congestion, cough, fever * Met sepsis criteria with WBC of 15.2 and tachycardia to 106 at presentation * VSS for 24H * CXR - developing R-middle lobe PNA * Given 3L NS in ED, rocepimelda, will cont abx and MIVF of NS @120cc/ hr * Monitor resp status 2. Ketosis secondary to DMI- Resolved * Known DMI * ABG: pH 7.328, AG 16, but ketosis of BHB 5.31 (10/28) * A * D/c Fluids * Continue Home Tresiba dose 35 U * Aggressive SS and ACHS Accuchecks with hyperglycemic protocol * Diabetic diet 3. SILVINA vs CKD- resolved * Cr 0.94, records reviewed and previous admission Cr 1.2 4. Hypothyroidism * cont home levothyroxine Code: Full Diet: CC IVF: d/c fluids VTE: SCDs PCP: None - sees Capital Equipment Specialist at [facility] Disposition/LOS: Admit to medical inpt for Sepsis 2/2 PNA and ketosis 2/2 DMI. Likely d/c today. LOS > 48 hours. Addendum - Attending - Attending Attestation Date/Time: 10/30/19 0112 I personally evaluated the patient and discussed the management with Dr. Wing I agree with the History, Examination, Assessment and Plan documented above with any addition or exceptions noted below. D/C today. Complete 5 total days of abx.
[2019-10-30 07:59] VITALS: BP 150/88; TEMP 97.8
[2019-10-30] MEDS ORDERED: Insulin Glargine 35 UNITS in Pre-Filled Syringe 1 EACH SC SCH (09:00)
[2019-10-30] MEDS: Famotidine 20 MG TAB PO SCH (09:03)
--- NOTE | 2019-10-31 04:39 | DIS ---
DATE OF ADMISSION: 10/28/2019 DATE OF DISCHARGE: 10/30/2019 RESIDENT: Vu Wing MD ADMITTING ATTENDING: Milady Chino MD DISCHARGE ATTENDING: Carmelo Vora MD CONSULTS: None. PROCEDURES: Chest x-ray, 10/28 showed findings suggestive of early infiltrative change in the right middle lung field. PRIMARY DIAGNOSES: 1. Community-acquired pneumonia. 2. Ketosis due to diabetes type 1. SECONDARY DIAGNOSIS: Hypothyroidism. DISCHARGE MEDICATIONS: 1. Omnicef 300 mg b.i.d. q.5 days. 2. Azithromycin 250 mg p.o. daily for 3 days. DISCONTINUED MEDICATIONS: 1. IV azithromycin. 2. Tessalon Perles. 3. Ceftriaxone. 4. Mucinex DM. 5. Insulin. HISTORY OF PRESENT ILLNESS: A 34-year-old male with history of diabetes type 1 and hypothyroidism, presents for concern that he may be in DKA. The patient states symptoms started Tuesday, 10/24 as cough or sinus congestion, sore throat. This then progressed to chest congestion, productive cough of thick green mucus and fever up to 100. He presented to [facility] on Tuesday for eval. Flu swab and strep were negative per patient. He was given Tessalon Perles and Tylenol and told likely viral in nature. He states he has had decreased p.o. intake since Tuesday night, trying to keep fluids down, but overall not feeling well. He checked the urine ketone strips this morning before admission and it was positive and he presented to the ER for evaluation. He currently denies any sick contacts, chest pain, shortness of breath, abdominal pain, nausea, vomiting, fevers, chills. He does endorse mild heartburn. Right middle lobe pneumonia on chest x-ray. He met sepsis criteria with tachycardia and white blood cells, given normal saline 3 L, Rocephin, azithromycin, and GI cocktail, admitted for pneumonia. 1. Sepsis secondary to right middle lobe pneumonia. a. Symptoms for 5 days, congestion, cough, fever. b. Met sepsis criteria with white blood cell count of 15, and tachycardia. c. Chest x-ray as noted above. d. Given 3 L of normal saline in the ED. Rocephin and azithromycin with normal saline. e. Vital signs improved and were normal for discharge. The patient was on azithromycin and ceftriaxone, but was discharged with azithromycin and Omnicef as noted above. 2. Ketosis secondary to type 1 diabetes. The patient came in with an anion gap of 16 and elevated beta hydroxybutyrate with an acidosis as noted on arterial blood gas. Before discharge, anion gap had closed and was 7 and bicarb had improved. Continue home Tresiba dose of 35 units. 3. SILVINA. Creatinine was 1.5 initially and on previous admission was 1.2, it had resolved to 0.94 before discharge. 4. Hypothyroidism, continue home levothyroxine dose. DISCHARGE INSTRUCTIONS: 1. Location: Home. 2. Diet: Diabetic. 3. Activity: As tolerated. 4. Followup: With a PCP or [facility] in 7 days. Job ID: [id number]
== END 2019-10-30 13:31 | disposition home or self-care (01) | DRG 871 ==
LOC: ERS 12:57 → T4-B 18:40
PROVIDERS: ADMIT Emergency Medicine; ATTEND Emergency Medicine
DX: A41.9 Sepsis, unspecified organism (principal); E10.10 Type 1 diabetes mellitus with ketoacidosis without coma; J18.9 Pneumonia, unspecified organism; N17.9 Acute kidney failure, unspecified; E03.9 Hypothyroidism, unspecified; E10.22 Type 1 diabetes mellitus with diabetic chronic kidney disease; N18.9 Chronic kidney disease, unspecified; Z79.890 Hormone replacement therapy; Z79.4 Long term (current) use of insulin; Z79.899 Other long term (current) drug therapy
CPT/HCPCS: 36415; 36416; 71045; 80048; 80053; 81003; 81015; 82010; 82330; 82803; 83605; 84145; 84484; 85025; 86140; 87040; 87086; 87149; 87804; 93005; 96361; 96365; 96367; J0456; J0696; J1815; J3490; J7050